=== PATIENT | male | born 1965 | race Caucasian/White ===

== ENCOUNTER 2016-03-28 20:00 | Inpatient (IN) | payer SELFPAY ==
[~2016-03-28] VITALS: Ht 167.6 cm; Wt 74.5 kg
--- NOTE | ~2016-03-28 | DS ---
PATIENT'S NAME: YOEL KENT [facility] AGE: 51 Y [address] ROOM: [place] [address] LOCATION: [facility] [place] ADMIT DATE: 03/28/2016 Discharge Summary DISCHARGE DATE: 03/31/2016 FAMILY PHYSICIAN: Tarun Monreal MD ATTENDING PHYSICIAN: Luke Rainey V PRINCIPAL DIAGNOSES: 1. Intra-abdominal abscess. 2. Perforated appendix. HOSPITAL COURSE: The patient was transferred to [facility] after presenting with abdominal pain for over four weeks. On evaluation, he was noted to have an abdominal abscess with a perforated appendix. The patient was evaluated by Surgery, and Interventional Radiology CT-guided drain was in place for the past two days with adequate drainage of abscess ongoing. The patient was started on Cipro and Flagyl for antibiotics, and had been responding well to these. Cultures from the abscess were growing Streptococcal species and possible anaerobes. The plan, going forward is for the patient to keep the drain on, and follow up with Surgery, Dr. Capone in 10 days. Once the infection comes off, the patient would require a surgical intervention at some point, and this is to be decided by Dr. Capone. I will discharge the patient on Augmentin for 12 more days to finish total antibiotics of fourteen days' duration. The patient has been afebrile for the last 24 hours. No signs of systemic infection, and abscess is draining nicely. PHYSICAL EXAMINATION: GENERAL: On my examination, the patient is awake, alert, and oriented x3. Tolerating p.o. intake well. CHEST: Clear to auscultation bilaterally. HEART: S1 and S2. Regular rate and rhythm. ABDOMEN: Soft, nontender, and nondistended with positive bowel sounds. EXTREMITIES: Without edema. DISPOSITION: Home. PLAN: Follow up with Dr. Capone in ten days. Less than 30 minutes were spent in discharge planning. PATIENT'S NAME: YOEL KENT [facility] AGE: 51 Y [address] ROOM: [place] [address] LOCATION: [facility] [place] ADMIT DATE: 03/28/2016 Discharge Summary DISCHARGE DATE: 03/31/2016 FAMILY PHYSICIAN: Tarun Monreal MD ATTENDING PHYSICIAN: Luke Rainey MD BG/modl /[id number] d: 04/01/16 0431 t: 04/09/16 1143, DISCHARGE SUMMARY
--- NOTE | ~2016-03-28 | HP ---
[facility]GE[facility] 51 Y [address] ROOM: [place] [address] LOCATION: [facility] [place] ADMIT DATE: 03/28/2016 History & Physical DISCHARGE DATE: FAMILY PHYSICIAN: KURTIS ZAMORA MD (ALMA) ATTENDING PHYSICIAN: MERI GRANT V DATE OF SERVICE: CHIEF COMPLAINT: Abdominal pain. HISTORY OF PRESENT ILLNESS: The patient is a 51-year-old male, who has not seen a physician for 20 years. He has been experiencing abdominal pain for the last month. He was seen in a clinic in [place] approximately 3 days ago. He claims that no interventions were done at that point. His pain continued and he returned to the clinic today. Subsequently, he was found to have leukocytosis and sent to the ER in [place]. There he had a CAT scan, which showed fluid collection, right lower quadrant, suspicious for abscess in the setting of perforated appendicitis, splenic granulomas, and nonspecific wall thickening of ascending colon. The case was discussed with Dr. Capone who recommended that the patient be admitted to the Medical Service and undergo interventional drainage of the fluid collection. The patient denies fevers or chills, but does admit to some weight loss. I did inquire the patient about his drinking habits due to his hyponatremia and transaminitis on electrolytes sent from the outside hospital. The patient endorses quite a significant drinking history of approximately 12 to 20 beers a day, 5 times a week up until the pain started approximately 1 month ago. He has not had an alcoholic beverage in the last 2 weeks. REVIEW OF SYSTEMS: All systems have been reviewed and negative aside from the pertinent positives mentioned above. PAST MEDICAL HISTORY: The patient denies. PAST SURGICAL HISTORY: The patient denies. CURRENT MEDICATIONS: None. FAMILY HISTORY: PATIENT'S NAME: KENT, [facility] AGE: 51 Y [address] ROOM: [place] [address] LOCATION: [facility] [place] ADMIT DATE: 03/28/2016 History & Physical DISCHARGE DATE: FAMILY PHYSICIAN: KURTIS ZAMORA MD (ALMA) ATTENDING PHYSICIAN: MERI GRANT V Significant for prostate cancer in his father. SOCIAL HISTORY: Significant for alcohol abuse as per HPI. 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 PHYSICAL EXAMINATION: VITAL SIGNS: Temperature 98.3, pulse is 104, respirations 15, blood pressure 125/81, and saturating 95% on room air. GENERAL: Appears as a malnourished middle-aged male, in no acute distress. NEUROLOGICAL: Nonfocal. EYES: Show pupils are equal and reactive to light. LYMPHATIC: Shows no cervical lymphadenopathy. ENDOCRINE: Shows no thyromegaly. ENT: Reveals mucous membranes are moist and no stridor. LUNGS: Clear to auscultation. HEART: Rate is slightly tachycardic and regular. ABDOMEN: Soft. Normoactive bowel sounds. There is right lower quadrant tenderness. VASCULAR: Reveals 2+ pedal pulses. SKIN: Warm and dry. MUSCULOSKELETAL: Unremarkable. PSYCHIATRIC: Reveals appropriate mood, cognition, and affect. LABORATORY DATA: Studies from the outside facility significant for the CAT scan as described in the HPI and the following lab abnormalities: His sodium is 123, potassium is 2.8, BUN is 6, glucose 90, chloride 84, CO2 of 27, calcium 8.1, AST 128, ALT 148, and alkaline phosphate 183. White count is 16, hemoglobin is 11.5, and platelet count 481. ASSESSMENT AND PLAN: This is a 51-year-old male, who will be admitted with: 1. Intraabdominal abscess: We will start the patient on ciprofloxacin and Flagyl. We will request Interventional Radiology consultation in the morning. We will also get a surgical consultation. We will make the patient n.p.o. after midnight for potential drain. We will start him on IV fluids. 2. Hyponatremia/hypokalemia: These are highly consistent with beer potomania, as the patient appears euvolemic. We will check his urine electrolytes. I am not tempted to actively treat this problem as it is probably longstanding and chronic. We will monitor his sodium levels and address if the patient require surgery. 3. Transaminitis. This is likely due to long history of alcohol abuse. We will get a right upper quadrant ultrasound. We will trend his LFTs. PATIENT'S NAME: YOEL KENT [facility] AGE: 51 Y [address] ROOM: [place] [address] LOCATION: [facility] ADMIT DATE: 03/28/2016 History & Physical DISCHARGE DATE: FAMILY PHYSICIAN: KURTIS ZAMORA (SPIKE) ATTENDING PHYSICIAN: MERI GRANT V 4. History of alcohol abuse. I do not believe that the patient is at any risk for withdrawal as he has not had an alcoholic beverage in 2 weeks. 5. Deep vein thrombosis prophylaxis will be instituted after he has been seen by IR. Additional management will depend on clinical course. Time dedicated to this patient's encounter is 35 minutes. MD ALAINA GUAMAN/rubi /[id number] P D: [id number] T: [id number] HISTORY & PHYSICAL
--- NOTE | ~2016-03-28 | HP ---
PATIENT'S NAME: SHUKRI REGAN [facility] AGE: 51 Y [address] ROOM: [place] [address] LOCATION: [facility] [place] ADMIT DATE: 03/28/2016 History & Physical DISCHARGE DATE: FAMILY PHYSICIAN: KURTIS ZAMORA MD (ALMA) ATTENDING PHYSICIAN: MERI GRANT V DATE OF SERVICE: 03/29/2016 CHIEF COMPLAINT: Abdominal pain. REVIEW OF RECORD: Shukri Regan is a 51-year-old gentleman, who has not been seen by a physician for 20 years. He says about a month ago he started having abdominal pain. He had a lot of pain in the right lower quadrant and has been having fevers and chills. He says he has had loose stools about 2-3 a day without evidence of blood for the last month as well. He has had no prior surgical interventions, never a screening colonoscopy. He has no history of inflammatory bowel disease. He was seen in [facility] three days ago and found to have elevated white count of 19,000. He was also found to have a low sodium. He presented to [place], and Dr. Zamora evaluated him and he was found to have persistent elevation of white count, tender in the right lower quadrant, and a CT scan showed a greater than 7 cm right lower quadrant abscess in the region of the appendix consistent with a perforated acute appendicitis and abscess. Appendix cannot be identified. There was some extension of the abscess down toward the psoas muscle and some thickening of the ascending colon likely reactive. There is no evidence of bowel obstruction. The patient has a history of alcohol abuse, mostly a binge drinker. He says he quit a month ago and he started having the pain. He also used to smoke until that time. The patient was found to have elevated transaminases and hyponatremia as a metabolic abnormality. PAST MEDICAL HISTORY: None. MEDICATIONS: None. ALLERGIES: NONE. OPERATIONS: None. 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 PATIENT'S NAME: SHUKRI REGAN [facility] AGE: 51 Y [address] ROOM: [place] [address] LOCATION: [facility] [place] ADMIT DATE: 03/28/2016 History & Physical DISCHARGE DATE: FAMILY PHYSICIAN: KURTIS ZAMORA MD (ALMA) ATTENDING PHYSICIAN: MERI GRANT V FAMILY HISTORY: Brother had prostate cancer, metastatic it sounds like. REVIEW OF SYSTEMS: He reports of fevers. He did not take his temperature. Denies any change in vision or hearing. No problems with dysphagia. No vomiting. No shortness of breath. He does have a smoker's cough. Denies any chest pain rating to his neck or arm with physical activity. Reports above-mentioned abdominal pain, mostly in the right lower quadrant. Denies any dysuria, hematuria, or pneumaturia. Denies any blood in his stools. Denies any swollen joints or artificial joints. Denies back pain. PHYSICAL EXAMINATION: GENERAL: He is alert, cooperative, currently afebrile. HEENT: Head is normocephalic. Sclerae are nonicteric. Mucous membranes are dry. NECK: Supple. There is no adenopathy or thyromegaly. LUNGS: Clear to auscultation. HEART: Normal sinus rhythm. ABDOMEN: Flat. Positive bowel sounds though he guards in the right lower quadrant with a sense of fullness. There is no tenderness in the left lower quadrant. He has 2/2 femoral and dorsalis pedis pulses. No peripheral edema. LABORATORY DATA: [place] admission[place] [address]. Sodium was 123, potassium 2.8, AST of 128, ALT of 148, alkaline phosphatase elevated at 183, platelet count 481,000. IMPRESSION: I suspect the patient has a perforated appendicitis one month ago, walled off an abscess without having some intestinal obstruction. He has hyponatremia and hypokalemia, which is being treated right now. He has history of alcohol abuse, but he says he stopped a month and encouraged him not to restart that habit. I agree with the plan for IV antibiotics. CT-guided drainage of the intraabdominal abscess. I discussed with the patient the possibility of laparoscopic delayed appendectomy in six weeks. However, I told him absolutely needs to get a screening colonoscopy before intervention and to make sure there was no evidence of malignancy causing a colonic or appendiceal perforation. The patient voices his understanding and willingness to comply with further management after the acute symptoms have been remedied. Thank you very much for allowing me to participate in his care. PATIENT'S NAME: SHUKRI REGAN [facility] AGE: 51 Y [address] ROOM: [address] [address] LOCATION: [facility] [place] ADMIT DATE: 03/28/2016 History & Physical DISCHARGE DATE: FAMILY PHYSICIAN: KURTIS ZAMORA (SPIKE) ATTENDING PHYSICIAN: MERI GRANT V JAKI FRANKLIN MD WTS/modl /[id number] D: [id number] T: [id number] HISTORY & PHYSICAL
[2016-03-28 22:44] LABS: BASOPHIL % 0.2 %; EOSINOPHIL % 0.1 %; HEMATOCRIT 31.5 % (37.0-53.0); HEMOGLOBIN 10.9 g/dL (12.0-17.0); IMMATURE GRANULOCYTE # 0.1 K/uL (0.0-0.3); IMMATURE GRANULOCYTE % 0.8 %; LYMPHOCYTE # 1.6 K/uL (0.8-4.0); LYMPHOCYTE % 12.5 %; MCH 28.4 pg (27.0-34.0); MCHC 34.6 gm/dL (32.0-36.5); MONOCYTE # 1.1 K/uL (0.0-1.0); MONOCYTE % 9.1 %; MPV 9.7 fl (9.4-12.4); NEUTROPHIL # (ANC) 9.7 K/uL (1.4-9.0); NEUTROPHIL % 77.3 %; NRBC % 0 /100WBC (0-0.00); PLATELET COUNT 385 K/uL (150-450); RBC 3.84 M/uL (4.00-6.00); RDW-CV 12.8 % (11.9-14.6); WBC 12.6 K/uL (4.0-11.0)
[2016-03-28 23:00] LABS: ALK PHOS 155 IU/L (33-138); ALT 136 IU/L (12-78); ANION GAP 14.1 (10.0-19.0); AST 124 IU/L (10-40); BLOOD UREA NITROGEN 5 mg/dL (6-24); CALCIUM 7.7 mg/dL (8.5-10.5); CHLORIDE 95 mMol/L (96-110); CO2 23 mMol/L (22-32); CREATININE 0.6 mg/dL (0.6-1.3); ESTIMATED GFR (MDRD EQUATION) > 60; MAGNESIUM 2.4 mg/dL (1.3-2.6); PHOSPHORUS 2.7 mg/dL (2.5-4.9); POTASSIUM 3.1 mMol/L (3.7-5.1); SODIUM 129 mMol/L (135-145); TOTAL BILIRUBIN 0.5 mg/dL (0.0-1.5); TOTAL PROTEIN 6.7 g/dL (6.0-8.4)
[2016-03-29 03:40] LABS: BILIRUBIN URINE NEGATIVE (NEGATIVE); BLOOD URINE NEGATIVE /UL (NEGATIVE); COLOR URINE STRAW (YELLOW); GLUCOSE URINE NEGATIVE (NEGATIVE); KETONE URINE NEGATIVE (NEGATIVE); LEUKOCYTES URINE NEGATIVE /UL (NEGATIVE); NITRITE URINE NEGATIVE (NEGATIVE); PROTEIN URINE NEGATIVE (NEGATIVE); SPEC GRAVITY URINE 1.005 (1.003-1.035); TURBIDITY URINE CLEAR (CLEAR); UROBILINOGEN URINE NORMAL (NORMAL)
[2016-03-29 06:15] LABS: ALK PHOS 129 IU/L (33-138); ALT 115 IU/L (12-78); ANION GAP 12.1 (10.0-19.0); AST 88 IU/L (10-40); BLOOD UREA NITROGEN 6 mg/dL (6-24); CALCIUM 7.6 mg/dL (8.5-10.5); CHLORIDE 99 mMol/L (96-110); CO2 27 mMol/L (22-32); CREATININE 0.5 mg/dL (0.6-1.3); ESTIMATED GFR (MDRD EQUATION) > 60; POTASSIUM 3.1 mMol/L (3.7-5.1); SODIUM 135 mMol/L (135-145); TOTAL PROTEIN 5.8 g/dL (6.0-8.4)
[2016-03-29 06:17] LABS: ALBUMIN 1.7 gm/dL (3.5-5.0); TOTAL BILIRUBIN 0.3 mg/dL (0.0-1.5)
[2016-03-29 13:03] LABS: INR - (THERAPEUTIC) 1.2 (0.9-1.1); PROTIME 12.9 SECONDS (9.6-11.1)
[2016-03-30 05:24] LABS: BASOPHIL % 0.3 %; EOSINOPHIL % 0.3 %; HEMATOCRIT 32.6 % (37.0-53.0); HEMOGLOBIN 10.9 g/dL (12.0-17.0); IMMATURE GRANULOCYTE # 0.1 K/uL (0.0-0.3); IMMATURE GRANULOCYTE % 0.7 %; LYMPHOCYTE # 0.9 K/uL (0.8-4.0); LYMPHOCYTE % 11.4 %; MCH 28.1 pg (27.0-34.0); MCHC 33.4 gm/dL (32.0-36.5); MONOCYTE # 0.8 K/uL (0.0-1.0); MONOCYTE % 10.4 %; MPV 9.6 fl (9.4-12.4); NEUTROPHIL # (ANC) 5.8 K/uL (1.4-9.0); NEUTROPHIL % 76.9 %; NRBC % 0 /100WBC (0-0.00); PLATELET COUNT 389 K/uL (150-450); RBC 3.88 M/uL (4.00-6.00); RDW-CV 13.1 % (11.9-14.6); WBC 7.5 K/uL (4.0-11.0)
[2016-03-30 05:53] LABS: ALK PHOS 115 IU/L (33-138); ALT 88 IU/L (12-78); ANION GAP 13.6 (10.0-19.0); AST 43 IU/L (10-40); BLOOD UREA NITROGEN 5 mg/dL (6-24); CALCIUM 8.1 mg/dL (8.5-10.5); CHLORIDE 99 mMol/L (96-110); CO2 26 mMol/L (22-32); CREATININE 0.5 mg/dL (0.6-1.3); ESTIMATED GFR (MDRD EQUATION) > 60; POTASSIUM 3.6 mMol/L (3.7-5.1); SODIUM 135 mMol/L (135-145); TOTAL PROTEIN 5.9 g/dL (6.0-8.4)
[2016-03-30 05:54] LABS: ALBUMIN 1.8 gm/dL (3.5-5.0); TOTAL BILIRUBIN 0.4 mg/dL (0.0-1.5)
[2016-03-31 06:20] LABS: ANION GAP 13.2 (10.0-19.0); BLOOD UREA NITROGEN 4 mg/dL (6-24); CALCIUM 7.8 mg/dL (8.5-10.5); CHLORIDE 100 mMol/L (96-110); CO2 25 mMol/L (22-32); CREATININE 0.4 mg/dL (0.6-1.3); ESTIMATED GFR (MDRD EQUATION) > 60; POTASSIUM 3.2 mMol/L (3.7-5.1); SODIUM 135 mMol/L (135-145)
[2016-03-31] MEDS ORDERED: AUGMENTIN 875-1 EACH PO (16:06)
== END 2016-03-31 17:00 | disposition disaster alternative care site (69) | DRG 372 ==
LOC: GMSU 20:37
PROVIDERS: Nurse Practitioner Family; Radiology Diagnostic Radiology; ADMIT Internal Medicine
PROC: 0W9G30Z Drainage of Peritoneal Cavity with Drainage Device, Percutaneous Approach (ICD-10-PCS; principal; 2016-03-29)
DX: K35.3 Acute appendicitis with localized peritonitis (principal); E87.1 Hypo-osmolality and hyponatremia; E87.6 Hypokalemia; F10.10 Alcohol abuse, uncomplicated
CPT/HCPCS: J1650; J2250; J3010; J3480; J7030; J7050

== ENCOUNTER → 2016-04-09 | Outpatient (CLI) | payer SELFPAY ==
[~2016-04-09] MED LIST: AUGMENTIN 875-1 EACH PO
== END | disposition disaster alternative care site (69) ==
LOC: GRAD 04-06 14:00
PROC: 0W9F30Z Drainage of Abdominal Wall with Drainage Device, Percutaneous Approach (ICD-10-PCS; principal; 2016-04-09)
DX: K35.3 Acute appendicitis with localized peritonitis (principal); K65.1 Peritoneal abscess
CPT/HCPCS: J7030

== ENCOUNTER → 2016-04-16 | Outpatient (CLI) | payer SELFPAY | END | disposition disaster alternative care site (69) | LOC: GRAD 13:46 | PROC: 0WPF30Z Removal of Drainage Device from Abdominal Wall, Percutaneous Approach (ICD-10-PCS; principal; 2016-04-16) | DX: Z48.03 Encounter for change or removal of drains (principal) ==